=== PATIENT | male | born 1975 | race Hispanic/Latino ===

== ENCOUNTER 2016-10-12 11:34 | Inpatient (IN) | payer SELFPAY ==
[~2016-10-12] VITALS: Ht 165.1 cm; Wt 61.5 kg
[~2016-10-12 11:34] MED LIST: FERROUS SULF325 M1 PO; PRILOSEC40 MG PO
--- NOTE | 2016-10-12 11:46 | NUR ---
PT AMBULATED TO ROOM 14.
[2016-10-12 12:33] LABS: HEMATOCRIT 35.8 % (39.0-50.0); HEMOGLOBIN 10.1 g/dl (14.0-18.0); IMMATURE GRANULOCYTES 0.4 % (0.0-1.0); MEAN CELL VOLUME 68.1 fL CALC (80.0-100.0); MEAN CORPUSCULAR HGB 19.2 pG CALC (26.0-32.0); MEAN CORPUSCULAR HGB CONC 28.2 g/L CALC (32.0-36.0); NEUT# 9.43 thou/uL (1.82-7.42); RED BLOOD COUNT 5.26 mill/uL (4.70-6.10); RED CELL DISTRI WIDTH 21.6 % (11.5-15.5)
--- NOTE | 2016-10-12 12:40 | NUR ---
PATIENT RESTING AWAITING LAB RESULTS PATIENT STATES PAIN 8 ON 0-10 SCALE MD MADE AWARE
[2016-10-12 12:44] LABS: URINE BLOOD DIPSTICK TRACE-INTACT (NEGATIVE); URINE GLUCOSE - DIPSTICK NEGATIVE (NEGATIVE); URINE KETONE TRACE mg/dL (NEGATIVE); URINE LEUK ESTERASE NEGATIVE (NEGATIVE); URINE NITRITE - DIPSTICK NEGATIVE (Negative); URINE PH 5.5 (4.5-8.0); URINE PROTEIN - DIPSTICK 100 mg/dL (NEG-TRACE); URINE SPECIFIC GRAVITY >=1.030; URINE UROBILINOGEN - DIPSTICK 0.2 E.U./dL (0.2)
[2016-10-12 12:45] LABS: URINE BILIRUBIN - DIPSTICK SMALL (NEGATIVE); URINE CLARITY SLIGHT CLOUDY; URINE COLOR DK. YELLOW
[2016-10-12 12:46] LABS: URINE EPITHELIAL CELLS FEW EPI/hpf (0-FEW); URINE MUCUS MODERATE hpf (NONE-FEW); URINE RBC 0-2 RBC/hpf (0-5)
[2016-10-12 12:46] LABS: ALBUMIN 5.1 g/dL (3.2-5.0); ALKALINE PHOSPHATASE 76 u/l (38-126); ANION GAP 23 (6-22 (CALC)); BILIRUBIN, TOTAL 1.1 mg/dL (0.0-1.4); BUN 6 mg/dL (9-20); BUN/CREATININE RATIO 7 (12-20 (CALC)); CALCIUM 9.5 mg/dL (8.4-10.2); CARBON DIOXIDE 23 mmol/l (22-30); CHLORIDE 103 mmol/l (95-108); CREATININE 0.9 mg/dL (0.7-1.3); ETHYL ALCOHOL 86 mg/dl (0-30); GFR > 60 ML/MIN (>=60 (CALC)); GFR FOR AFR.AMER. > 60 ML/MIN (>=60 (CALC)); GLUCOSE 111 mg/dL (75-110); POTASSIUM 4.2 mmol/l (3.5-5.1); SGOT/AST 70 u/l (17-59); SGPT/ALT 79 u/l (21-72); SODIUM 145 mmol/l (137-146); TOTAL PROTEIN 8.7 g/dL (6.3-8.2)
[2016-10-12 12:47] LABS: BARBITURATES NEGATIVE (NEGATIVE); COCAINE NEGATIVE (NEGATIVE); METHADONE NEGATIVE (NEGATIVE); TETRAHYDROCANNABIONOL NEGATIVE (NEGATIVE); TRICYLIC ANTIDEPRESSANTS NEGATIVE (NEGATIVE)
[2016-10-12 12:48] LABS: OXCYCODONE NEGATIVE (NEGATIVE)
[2016-10-12 12:52] LABS: AMYLASE 1714 u/l (30-110)
[2016-10-12 13:13] LABS: LIPASE 16555 u/l (23-300)
--- NOTE | 2016-10-12 13:31 | NUR ---
PATIENT RESTING PAIN 4 ON 0-10 SCALE AFTER BEING MEDICATED PATIENT AWAITING CT SCAN
--- NOTE | 2016-10-12 14:30 | NUR ---
PATIENT RESTING AWAITING ROOM ASSIGNMNET PAIN 4 ON 0-10 SCALE
--- NOTE | 2016-10-12 15:18 | NUR ---
REPORT CALLED TO [facility]
[2016-10-12 15:37] VITALS: BP 141/78
--- NOTE | 2016-10-12 15:40 | NUR ---
RECIEVED PT FROM ER VIA STRETCHER. PT ALERT AND ORIENTED. ASSESSMENT COMPLETED. PT IN POSITION FROM ABD PAIN. INSTRUCTED THAT IT WAS TOO EARLY FOR PAIN MEDICATION. SHE STATED "THE ER WOULDN'T GIVE HIM ANY MORE PAIN MED." ASSESSMENT COMPLETED. PT STILL APPEARS TO BE IN PAIN, NEXT DOSE OF DILAUDID IS 1700. ROOM ARRANGEMENT GIVEN WITH VERBAL UNDERSTANDING. CALL LIGHT WITHIN REACH.
--- NOTE | 2016-10-12 16:00 | NUR ---
CALLED DR. METZGER TO NOTIFY HIM THAT PAIN MEDICATION WAS NOT HOLDING HIS PAIN LEVEL TO A TOLERABLE LEVEL. NEW ORDERS RECEIVED TO INCREASE THE DILAUDID TO 1.5 MG EVERY 3 HOURS NEEDED FOR PAIN MANAGEMENT.
--- NOTE | 2016-10-12 16:23 | NUR ---
PT CONTINUES TO HOLD ABD. STATES PAIN LEVEL IS 10 OF 10. MEDICATED WITH DILAUDID 1.5 MG PER MD ORDER. AFTER SEVERAL MINUTES PATIENT WAS ABLE TO REST EASIER. REMAINS AT BEDSIDE. INSTRUCTED BOTH PATIENT AND THAT PATIENT IS NOT TO GET UP BY HIMSELF FOR THE NEXT HOUR, BOTH VERBALIZED UNDERSTANDING OF TEACHING. CALL LIGHT WITHIN REACH.
--- NOTE | 2016-10-12 19:21 | NUR ---
C/O NAUSEA AND PAIN TO ABDOMEN /10, MEDICATED WITH DILUADID 1.5MG IV. LR INFUSING TO LAC AT 200CC/HR. CLEAR LIQUIDS AT BED SIDE. ENCOURAGED TO USE CALL LIGHT FOR ASSISTANCE. WILL CONTINUE TO MONITOR.
[2016-10-12 19:25] VITALS: BP 138/91
--- NOTE | 2016-10-12 23:23 | NUR ---
C/O PERSISTENT NAUSEA EVEN AFTER MEDICATING WITH ZOFRAN, DR. TYSON NOTIFIED AND NEW ORDER RECEIVED TO DC ZOFRAN AND MEDICATE WITH PHENERGAN. MEDICATED WITH PHENERGAN AND DILAUDID AT THIS TIME FOR NAUSEA AND ABDOMINAL PAIN 01/22. WILL CONTINUE TO MONITOR.
--- NOTE | 2016-10-13 02:47 | NUR ---
MEDICATEWD WITH DILAUDID FOR C/O ABDONINAL PAIN 12/23.
[2016-10-13 05:20] VITALS: BP 134/88
--- NOTE | 2016-10-13 05:20 | NUR ---
MEDICATED WITH PHENERGAN IV FOR C/O NAUSEA.
--- NOTE | 2016-10-13 05:49 | NUR ---
MEDICATED WITH DILAUDID 1.5MG IV FOR ABDOMINAL PAIN 10/22
[2016-10-13 06:08] LABS: HEMATOCRIT 36.5 % (39.0-50.0); HEMOGLOBIN 9.7 g/dl (14.0-18.0); IMMATURE GRANULOCYTES 0.6 % (0.0-1.0); MEAN CELL VOLUME 70.5 fL CALC (80.0-100.0); MEAN CORPUSCULAR HGB 18.7 pG CALC (26.0-32.0); MEAN CORPUSCULAR HGB CONC 26.6 g/L CALC (32.0-36.0); NEUT# 13.95 thou/uL (1.82-7.42); RED BLOOD COUNT 5.18 mill/uL (4.70-6.10); RED CELL DISTRI WIDTH 21.3 % (11.5-15.5)
[2016-10-13 06:24] LABS: ALBUMIN 4.4 g/dL (3.2-5.0); ALKALINE PHOSPHATASE 58 u/l (38-126); AMYLASE 1123 u/l (30-110); ANION GAP 19 (6-22 (CALC)); BILIRUBIN, TOTAL 1.6 mg/dL (0.0-1.4); BUN 8 mg/dL (9-20); BUN/CREATININE RATIO 13 (12-20 (CALC)); CALCIUM 8.8 mg/dL (8.4-10.2); CARBON DIOXIDE 26 mmol/l (22-30); CHLORIDE 102 mmol/l (95-108); CREATININE 0.7 mg/dL (0.7-1.3); GFR > 60 ML/MIN (>=60 (CALC)); GFR FOR AFR.AMER. > 60 ML/MIN (>=60 (CALC)); GLUCOSE 119 mg/dL (75-110); MAGNESIUM 1.7 mg/dL (1.6-2.3); POTASSIUM 3.7 mmol/l (3.5-5.1); SGOT/AST 72 u/l (17-59); SGPT/ALT 59 u/l (21-72); SODIUM 143 mmol/l (137-146); TOTAL PROTEIN 7.7 g/dL (6.3-8.2)
--- NOTE | 2016-10-13 06:31 | NUR ---
UNABLE TO OBTAIN ACURATE A'S AND O'S DUE TO PT VOIDING IN COMMODE, ORIENTED TO USE URINAL.
[2016-10-13 06:53] LABS: LIPASE 9748 u/l (23-300)
--- NOTE | 2016-10-13 07:00 | NUR ---
SHIFT CHANGE REPORT NICKIE CANTU, PT AWAKE ALERT AND ORIENTED RESTING IN BED, C/O ABD PAIN AT THIS TIME, IVF INFUSING, CALL PAUL IN REACH.
[2016-10-13 08:30] VITALS: BP 122/79
--- NOTE | 2016-10-13 12:00 | NUR ---
AMBULATING IN ROOM, ALL CONCERNS ADDRESSED, ACCIDENTALLY DISLODGED IV CATHETER, FAMILY AT BEDSIDE, WILL CONTINUE TO MONITOR AND ADDRESS NEEDS, CALL PAUL IN REACH.
[2016-10-13 16:46] VITALS: BP 148/90
--- NOTE | 2016-10-13 16:54 | NUR ---
RESTING IN BED AT THIS TIME, IVF NFUSING, NO NEW COMPLAIN, PAIN MINIMALLY CONTROLLED WITH ANALGESIC, CALL PAUL IN REACH.
--- NOTE | 2016-10-13 16:59 | NUR ---
A P SUPERVISOR REPORTS PULSE RATE @ 123 BPM AT THIS TIME, MEASURED APICALLY AND WAS 102 BPM, BP ELEVATED, WILL ADDRESS CONCERNS AND NOTIFY .
--- NOTE | 2016-10-13 17:18 | NUR ---
DR TYSON NOTIFIED VIA PHONE ABOUT PT'S BP AND PULSE, GAVE ORDERS.
--- NOTE | 2016-10-13 19:00 | NUR ---
RECEIVED SHIFT REPORT FROM DOLLY BARRETO. PATIENT SITTING UP AT BEDSIDE AND APPEARS NOT TO BE IN ANY DISCOMFORT. FAMILY AT BEDSIDE.
[2016-10-13 20:00] VITALS: BP 133/90
--- NOTE | 2016-10-13 20:00 | NUR ---
PATIENT'S BECOMING CONFUSED AND HALLUCINATING. STATES HE IS POINTING TO PEOPLE KNOWS AND WHO ARE NOT PRESENT IN THE ROOM.
--- NOTE | 2016-10-13 20:20 | NUR ---
DR TYSON NOTIFIED OF CHANGES IN PATIENT'S CONDITION. ORDERS RECEIVED. WILL CONTINUE TO MONITOR.
--- NOTE | 2016-10-14 | NUR ---
PATIENT CONTINUES TO BE CONFUSED AND AGIGATED. REMOVED IV ACCESS. GAUZE DRESSING APPLIED TO SITE.
--- NOTE | 2016-10-14 01:30 | NUR ---
PATIENT REMAINS CONFUSED. PULLED IV ACCESS.
[2016-10-14 03:40] VITALS: BP 143/82
--- NOTE | 2016-10-14 04:00 | NUR ---
PATIENT'S COGNITION IS IMPROVING AT THIS TIME. WILL CONTINUE TO MONITOR.
[2016-10-14 05:29] LABS: ALBUMIN 3.6 g/dL (3.2-5.0); ALKALINE PHOSPHATASE 47 u/l (38-126); AMYLASE 962 u/l (30-110); ANION GAP 14 (6-22 (CALC)); BILIRUBIN, TOTAL 1.9 mg/dL (0.0-1.4); BUN 9 mg/dL (9-20); BUN/CREATININE RATIO 13 (12-20 (CALC)); CALCIUM 8.7 mg/dL (8.4-10.2); CARBON DIOXIDE 27 mmol/l (22-30); CHLORIDE 99 mmol/l (95-108); CREATININE 0.7 mg/dL (0.7-1.3); GFR > 60 ML/MIN (>=60 (CALC)); GFR FOR AFR.AMER. > 60 ML/MIN (>=60 (CALC)); GLUCOSE 84 mg/dL (75-110); POTASSIUM 3.5 mmol/l (3.5-5.1); SGOT/AST 62 u/l (17-59); SGPT/ALT 45 u/l (21-72); SODIUM 136 mmol/l (137-146); TOTAL PROTEIN 6.3 g/dL (6.3-8.2)
[2016-10-14 06:13] LABS: HEMATOCRIT 27.4 % (39.0-50.0); HEMOGLOBIN 7.6 g/dl (14.0-18.0); IMMATURE GRANULOCYTES 1.3 % (0.0-1.0); MEAN CELL VOLUME 68.7 fL CALC (80.0-100.0); MEAN CORPUSCULAR HGB CONC 27.7 g/L CALC (32.0-36.0); NEUT# 6.57 thou/uL (1.82-7.42); RED BLOOD COUNT 3.99 mill/uL (4.70-6.10); RED CELL DISTRI WIDTH 20.9 % (11.5-15.5)
--- NOTE | 2016-10-14 07:00 | NUR ---
SHIFT CHANGE REPORT FROM TIERRA, PT AWAKE, ALERT, RESTLESS AND GITTERY, ATTEMPTING TO LEAVE UNIT STATING HE IS GOING HOME, REDIRECTED AND REOIRENTED BUT STILL RESTLESS. AIRPLANE PATROLLER REPORTED ATIVAN GIVEN AND MENTATION DETERIORATED WITH GROSS RESTLESNESS AND HALUCINATION AND PT TRYING TO ESCAPE DOWN STEPS IN PASSAGEWAY. SETTLED IN BED AT THIS TIME, SPOUSE AT BEDSIDE, WILL CONTNUE TO MONITOR.
[2016-10-14 07:06] LABS: LIPASE 5559 u/l (23-300)
--- NOTE | 2016-10-14 07:55 | NUR ---
PT JUST ESCAPED TO OB DEPARTMENT AND HAD TO BE TRACKED DOWN BY FARM EQUIPMENT MECHANIC, SPOUSE IN ROOM BUT UNABLE TO CONTROL PT, REDIRECTED BACK TO ROOM AND BEING MONITORED NOW.
[2016-10-14 08:03] VITALS: BP 126/81
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
--- NOTE | 2016-10-14 14:29 | NUR ---
PT HAS BEEN RESTLESS ALL DAY, ATIVAN SEEMED TO HAVE WORSENED CONDITION, CONTINEUE TO TRY TO ESCPE, SPOUSE IN ROOM AND ASSISTING TO CALM PT BUT WITH NO AVAIL. STAFF CONTINUES TO MONITOR ON ONE- TO- ONE BASIS, WILL CONTINUE TO MONITOR.
--- NOTE | 2016-10-14 16:06 | NUR ---
PT BROKE IV TUBING AT THIS TIME, CONTINUES TO BE AGITATED AND WANTS TO GO HOME, REQUEST TO HAVE SHOWER AND GIVEN SUPPLIES FOR THIS, SPOUSE IN BR SUPERVISING PT WILL NOT ALLOW STAFF IN BR WITH HIM. WILL CONTINUE TO MONITOR.
[2016-10-14 17:00] VITALS: BP 120/85
--- NOTE | 2016-10-14 17:10 | NUR ---
AGITATION, RESTLELNESS AND CONFUSION HAS NOT IMPROVED, PT ATTEMPTING TO REMOVE IV CATHETER AND SWINGING OBJECTS AT SPOUSE. SECURITY CALLED TO UNIT AND MD (DR TYSON) NOTIFIED. DR TYSON RECOMMENDS TO HAVE SECURITY TALK TO PT AND IF BEHAVIOR DOES NOT IMPROVE TO RESTRAIN PT IN BED. ORDERS EXECUTED AND WILL CONTINUE TO MONITOR AND USE RESTRAIN LAST RESORT.
--- NOTE | 2016-10-14 17:42 | NUR ---
PT HAS BEEN CALM SINCE SECURITY CONSULTED WITH HIM BUT STANDING IN ROOM WITH ARMS FOLDED ALMOST LIKE A STATUE LOOKING AT WALL, WILL CONTINUE TO MONITOR.
--- NOTE | 2016-10-14 19:00 | NUR ---
RECEIVED SHIFT REPORT FROM DOLLY BARRETO. PATIENT AWAKE AND ORIENTED TO NAME AT THIS TIME. ORIENT PATIENT TO TIME, PLACE AND SITUATION. SITTER WITH PATIENT AT THIS TIME, BANANA BAG INFUSING AT 100CC/HR. WILL CONTINUE TO MONITOR.
--- NOTE | 2016-10-15 | NUR ---
PATIENT IS LAYING IN BED AT THIS TIME WITH EYES CLOSED AND APPEARS TO BE ASLEEP. RESPIRATION EVEN AND UNLABORED. SITTER IN ROOM.
--- NOTE | 2016-10-15 04:00 | NUR ---
PATIENT RESTING QUIETLY AT THIS TIME. NO APPARENT ACUTE DISTRESS NOTED.
[2016-10-15 05:10] VITALS: BP 127/70
[2016-10-15 05:20] LABS: ALBUMIN 3.2 g/dL (3.2-5.0); ALKALINE PHOSPHATASE 42 u/l (38-126); AMYLASE 297 u/l (30-110); ANION GAP 11 (6-22 (CALC)); BILIRUBIN, TOTAL 1.5 mg/dL (0.0-1.4); BUN 7 mg/dL (9-20); BUN/CREATININE RATIO 12 (12-20 (CALC)); CALCIUM 8.4 mg/dL (8.4-10.2); CARBON DIOXIDE 30 mmol/l (22-30); CHLORIDE 99 mmol/l (95-108); CREATININE 0.6 mg/dL (0.7-1.3); GFR > 60 ML/MIN (>=60 (CALC)); GFR FOR AFR.AMER. > 60 ML/MIN (>=60 (CALC)); GLUCOSE 91 mg/dL (75-110); LIPASE 901 u/l (23-300); POTASSIUM 3.2 mmol/l (3.5-5.1); SGOT/AST 42 u/l (17-59); SGPT/ALT 36 u/l (21-72); SODIUM 137 mmol/l (137-146); TOTAL PROTEIN 6.1 g/dL (6.3-8.2)
[2016-10-15 05:22] LABS: HEMOGLOBIN 7.1 g/dl (14.0-18.0); IMMATURE GRANULOCYTES 0.7 % (0.0-1.0); MEAN CELL VOLUME 68.7 fL CALC (80.0-100.0); MEAN CORPUSCULAR HGB 19.5 pG CALC (26.0-32.0); MEAN CORPUSCULAR HGB CONC 28.4 g/L CALC (32.0-36.0); NEUT# 5.62 thou/uL (1.82-7.42); RED BLOOD COUNT 3.64 mill/uL (4.70-6.10); RED CELL DISTRI WIDTH 21.1 % (11.5-15.5)
--- NOTE | 2016-10-15 07:00 | NUR ---
PT RESTING WITH EYES; SPOUSE IN ROOM; WILL CONTINUE TO MONITOR
[2016-10-15 07:40] VITALS: BP 122/73
[2016-10-15 12:55] LABS: PROTHROMBIN TIME 11.2 SECONDS (9.0-12.5)
[2016-10-15 16:00] VITALS: BP 117/73
--- NOTE | 2016-10-15 16:30 | NUR ---
PT SITTING IN CHAIR; SPOUSE IN ROOM; PT MEDICATED FOR C/O ABD PAIN 08/22; CALL PAUL WITHIN REACH; WILL CONTINUE TO MONITOR
[2016-10-15 18:06] LABS: HEMATOCRIT 25.4 % (39.0-50.0); HEMOGLOBIN 7.2 g/dl (14.0-18.0)
--- NOTE | 2016-10-15 19:00 | NUR ---
RECEIVED SHIFT REPORT FROM DOLLY YBARRA. PATIENT LAYING IN BED WITH EYES CLOSED AND APPEARS TO BE ASSLEEP. RESPIRATIOBN EVEN AND UNLABORED. NO APPARENT ACUTE DISTRESS NOTED.
[2016-10-15 19:14] VITALS: BP 128/76
--- NOTE | 2016-10-16 | NUR ---
PATIENT LAYING IN BED AT THIS TIME WITH EYES CLOSED AND APPEARS TO BE ASLEEP. NO APPARENT DISTRESS NOTED. PATIENT IS BEING MORE APPROPRIATE. WILL CONTINUE TO MONITOR.
--- NOTE | 2016-10-16 03:59 | NUR ---
PATIENT IS RESTING IN BED QUIETLY. NO APPARENT ACUTE DISTRESS NOTED
[2016-10-16 04:45] VITALS: BP 145/54
[2016-10-16 06:22] LABS: HEMATOCRIT 28.5 % (39.0-50.0); HEMOGLOBIN 7.9 g/dl (14.0-18.0); IMMATURE GRANULOCYTES 1.1 % (0.0-1.0); MEAN CORPUSCULAR HGB 19.4 pG CALC (26.0-32.0); MEAN CORPUSCULAR HGB CONC 27.7 g/L CALC (32.0-36.0); NEUT# 4.06 thou/uL (1.82-7.42); RED BLOOD COUNT 4.07 mill/uL (4.70-6.10); RED CELL DISTRI WIDTH 21.9 % (11.5-15.5)
[2016-10-16 06:40] LABS: AMYLASE 93 u/l (30-110); ANION GAP 13 (6-22 (CALC)); BUN 3 mg/dL (9-20); BUN/CREATININE RATIO 5 (12-20 (CALC)); CALCIUM 9.1 mg/dL (8.4-10.2); CARBON DIOXIDE 30 mmol/l (22-30); CHLORIDE 98 mmol/l (95-108); CREATININE 0.6 mg/dL (0.7-1.3); GFR > 60 ML/MIN (>=60 (CALC)); GFR FOR AFR.AMER. > 60 ML/MIN (>=60 (CALC)); GLUCOSE 92 mg/dL (75-110); LIPASE 331 u/l (23-300); POTASSIUM 3.1 mmol/l (3.5-5.1); SODIUM 139 mmol/l (137-146)
[2016-10-16 06:41] VITALS: BP 125/84
--- NOTE | 2016-10-16 07:00 | NUR ---
SHIFT CHANGE REPORT FROM TIERRA, NEHEMIAS AWAKE ALERT AND ORIENTED SITTING UP AT BEDSIDE, MENTATION, RESTLESNESS AND AGITATION MUCH IMPROVED, REPORTS PAIN IS MINIMAL AND ABLE TO LAY SUPINE WHICH HE WAS UNABLE TO DO FEW DAYS AGO. SITTER IN ROOM, CALL PAUL IN REACH.
[2016-10-16] MEDS ORDERED: PANTOPRAZOLE SO40 M1 PO (09:09)
[2016-10-16] MEDS ORDERED: LIBRIUM25 M1 PO (09:09)
[2016-10-16] MEDS ORDERED: FERROUS SULFAT325 MG PO (09:09)
[2016-10-16] MEDS ORDERED: TAB-A-VITE W/1 COMBO PO (09:09)
--- NOTE | 2016-10-16 09:40 | NUR ---
Discharge instructions given. Patient verbalizes understanding of same. Discharged in good condition via Ambulatory to Home with spouse. All belongings sent with pt.
== END 2016-10-16 09:41 | disposition home or self-care (01) | DRG 439 ==
LOC: ENPENDDIS → ED 11:34 → ED-I 14:13 → ED 14:49 → MS2 14:50
PROVIDERS: Emergency Medicine; Internal Medicine; Nurse Practitioner Family; ADMIT Internal Medicine; ATTEND Internal Medicine
DX: K85.20 Alcohol induced acute pancreatitis without necrosis or infection (principal); F10.231 Alcohol dependence with withdrawal delirium; D69.59 Other secondary thrombocytopenia; E46 Unspecified protein-calorie malnutrition; F17.210 Nicotine dependence, cigarettes, uncomplicated; K70.11 Alcoholic hepatitis with ascites; D50.8 Other iron deficiency anemias; R19.5 Other fecal abnormalities
CPT/HCPCS: G0328; J1650; J1756; J2060; S0164

== ENCOUNTER 2017-05-23 08:38 | Emergency (ER) | payer SELFPAY ==
[~2017-05-23] VITALS: Ht 165.1 cm; Wt 65.0 kg
[~2017-05-23 08:38] MED LIST changes: +FERROUS SULFAT325 MG PO; +LIBRIUM25 M1 PO; +PANTOPRAZOLE SO40 M1 PO; +TAB-A-VITE W/1 COMBO PO
[2017-05-23 09:10] LABS: HEMATOCRIT 37.2 % (39.0-50.0); HEMOGLOBIN 11.6 g/dl (14.0-18.0); IMMATURE GRANULOCYTES 0.2 % (0.0-1.0); MEAN CELL VOLUME 76.9 fL CALC (80.0-100.0); MEAN CORPUSCULAR HGB CONC 31.2 g/L CALC (32.0-36.0); PLATELET COUNT 148 thou/uL (130-400); RED BLOOD COUNT 4.84 mill/uL (4.70-6.10); RED CELL DISTRI WIDTH 20.8 % (11.5-15.5)
[2017-05-23 09:13] LABS: MANUAL DIFFERENTIAL YES
[2017-05-23 09:40] LABS: ALBUMIN 5.2 g/dL (3.2-5.0); ALKALINE PHOSPHATASE 73 u/l (38-126); ANION GAP 20 (6-22 (CALC)); BILIRUBIN, TOTAL 1.9 mg/dL (0.0-1.4); BUN 9 mg/dL (9-20); BUN/CREATININE RATIO 10 (12-20 (CALC)); CARBON DIOXIDE 23 mmol/l (22-30); CHLORIDE 97 mmol/l (95-108); CREATININE 0.9 mg/dL (0.7-1.3); ETHYL ALCOHOL 0 mg/dl (0-30); GFR > 60 ML/MIN (>=60 (CALC)); GFR FOR AFR.AMER. > 60 ML/MIN (>=60 (CALC)); POTASSIUM 2.9 mmol/l (3.5-5.1); SGOT/AST 151 u/l (17-59); SGPT/ALT 202 u/l (21-72); SODIUM 137 mmol/l (137-146); TOTAL PROTEIN 8.5 g/dL (6.3-8.2)
[2017-05-23 09:55] LABS: URINE BILIRUBIN - DIPSTICK NEGATIVE (NEGATIVE); URINE BLOOD DIPSTICK NEGATIVE (NEGATIVE); URINE COLOR YELLOW; URINE GLUCOSE - DIPSTICK NEGATIVE (NEGATIVE); URINE KETONE NEGATIVE (NEGATIVE); URINE LEUK ESTERASE NEGATIVE (NEGATIVE); URINE NITRITE - DIPSTICK NEGATIVE (Negative); URINE PROTEIN - DIPSTICK NEGATIVE (NEG-TRACE); URINE SPECIFIC GRAVITY 1.015; URINE UROBILINOGEN - DIPSTICK 0.2 E.U./dL (0.2)
[2017-05-23 10:02] LABS: BARBITURATES NEGATIVE (NEGATIVE); COCAINE NEGATIVE (NEGATIVE); METHADONE NEGATIVE (NEGATIVE); OXCYCODONE NEGATIVE (NEGATIVE); TETRAHYDROCANNABIONOL NEGATIVE (NEGATIVE); TRICYLIC ANTIDEPRESSANTS NEGATIVE (NEGATIVE); URINE CLARITY CLEAR
[2017-05-23 11:05] LABS: BAND 3 % (0-8)
[2017-05-23 13:14] VITALS: BP 126/82
== END 2017-05-23 11:35 | DRG 641 ==
LOC: ED 08:38
PROVIDERS: Emergency Medicine
DX: E87.6 Hypokalemia (principal); F29 Unspecified psychosis not due to a substance or known physiological condition; R44.1 Visual hallucinations

== ENCOUNTER 2021-03-02 11:37 | Day surgery (SDC) | payer SELFPAY ==
[~2021-03-02] VITALS: Ht 165.1 cm; Wt 68.0 kg
[2021-03-02] MEDS ORDERED: PERCOCET 5/325M1 TAB PO (14:46)
[2021-03-02 16:03] VITALS: BP 105/71
== END 2021-03-02 15:50 | disposition home or self-care (01) | DRG 349 ==
LOC: ORM 11:37
PROVIDERS: ATTEND Surgery
PROC: 06BY3ZC Excision of Hemorrhoidal Plexus, Percutaneous Approach (ICD-10-PCS; principal; 2021-03-02)
DX: K64.2 Third degree hemorrhoids (principal); K64.4 Residual hemorrhoidal skin tags
CPT/HCPCS: C9290; J0131